=== PATIENT | male | born 1975 | race Caucasian/White ===

== ENCOUNTER 2019-01-30 19:59 | Emergency (ER) | payer SELFPAY ==
[2019-02-01 20:29] VITALS: BP 2/230
== END 2019-01-30 20:30 | disposition left against medical advice (07) ==
LOC: ER 20:01
DX: M54.9 Dorsalgia, unspecified (principal); R10.9 Unspecified abdominal pain

== ENCOUNTER 2019-02-01 20:15 | Emergency (ER) | payer OTHER ==
[~2019-02-01] VITALS: Ht 188 cm; Wt 104.3 kg
[2019-02-01] MEDS ORDERED: NS IV 1000 ML 1,000 ML IV ONE (20:35)
[2019-02-01] MEDS ORDERED: CITA20TA9 (20:36)
[2019-02-01 20:54] LABS: BILIRUBIN,URINE NEGATIVE (NEGATIVE); CLARITY,URINE SLIGHTLY CLOUDY; COLOR,URINE BROWN; GLUCOSE, URINE (UA) NEGATIVE (NEGATIVE); KETONES,URINE NEGATIVE (NEGATIVE); LEUKOCYTE ESTERASE ,URINE 1+ (NEGATIVE); NITRITE,URINE NEGATIVE (NEGATIVE); PH,URINE 6 (5-9); PROTEIN,URINE 2+ (NEGATIVE); UROBILINOGEN,URINE NORMAL (NORMAL)
[2019-02-01 20:55] LABS: BASOPHILS % (AUTO) 0 % (0-10); EOSINOPHILS # (AUTO) 0.1 10^3/uL (0.0-0.3); EOSINOPHILS % (AUTO) 1 % (0-10); HEMATOCRIT 44 % (40-54); HEMOGLOBIN 15.3 G/DL (13.3-17.7); LYMPHOCYTES # (AUTO) 1.9 X 10^3 (1.0-4.0); LYMPHOCYTES % (AUTO) 17 % (12-44); MEAN CORPUSCULAR HEMOGLOBIN 30 PG (25-34); MEAN CORPUSCULAR HGB CONC 35 G/DL (32-36); MEAN CORPUSCULAR VOLUME 87 FL (80-99); MEAN PLATELET VOLUME 11.9 FL (7.4-10.4); MONOCYTES # (AUTO) 0.8 X 10^3 (0.0-1.0); MONOCYTES % (AUTO) 7 % (0-12); NEUTROPHILS # (AUTO) 8.3 X 10^3 (1.8-7.8); NEUTROPHILS % (AUTO) 75 % (42-75); PLATELET COUNT 163 10^3/uL (130-400); RED CELL DISTRIBUTION WIDTH 13.3 % (10.0-14.5); WHITE BLOOD COUNT 11.1 10^3/uL (4.3-11.0)
--- NOTE | 2019-02-01 21:03 | Diagnostic Imaging Report ---
INDICATION: Right flank pain. FINDINGS: There are no calculi overlying the kidneys. Bowel gas pattern is normal. There are multiple calcifications in the pelvis which are rounded and most likely represent phleboliths, however, there is one 5 mm calculus, this does overlie the right inferior sacrum which could represent a distal right ureteral stone. No bony abnormalities. IMPRESSION: Question of a possible 5 mm calculus distal right ureteral stone versus phlebolith. Clinical followup recommended. Dictated by: Dictated on workstation # [id number]
[2019-02-01 21:06] LABS: BACTERIA,URINE NEGATIVE /HPF; RBC,URINE TNTC /HPF
[2019-02-01 21:12] LABS: ALANINE AMINOTRANSFERASE 18 U/L (0-55); ALBUMIN 4.6 GM/DL (3.2-4.5); ALKALINE PHOSPHATASE 65 U/L (40-136); AMYLASE 69 U/L (25-125); BILIRUBIN,TOTAL 0.6 MG/DL (0.1-1.0); BUN/CREATININE RATIO 14; CALCIUM 9.9 MG/DL (8.5-10.1); CARBON DIOXIDE 21 MMOL/L (21-32); CHLORIDE 104 MMOL/L (98-107); CREATININE SERUM 1.21 MG/DL (0.60-1.30); GFR ESTIMATED > 60; GLUCOSE 107 MG/DL (70-105); LIPASE 30 U/L (8-78); POTASSIUM 3.9 MMOL/L (3.6-5.0); SODIUM 138 MMOL/L (135-145); TOTAL PROTEIN 7.3 GM/DL (6.4-8.2)
--- NOTE | 2019-02-01 21:27 | Diagnostic Imaging Report ---
PROCEDURE: CT urinary tract, rule out kidney stone. TECHNIQUE: Multiple contiguous axial images were obtained through the abdomen and pelvis without the use of intravenous contrast. Auto Exposure Controls were utilized during the CT exam to meet ALARA standards for radiation dose reduction. INDICATION: Hematuria. FINDINGS: The lung bases are clear. There is mild hydronephrosis of the right kidney. The right ureter is dilated. There is a stone in the distal right ureter at the bladder measuring 5 mm. Left kidney and ureter are normal. The bladder is nondistended. There are no bladder stones. The lung bases are clear. The liver appears normal. Gallbladder and bile ducts are normal. Pancreas and spleen are normal. Adrenal glands are normal. Bowel gas pattern is normal. The appendix is normal. Aorta shows mild atherosclerotic disease. There is no evidence of constipation. No free air or free fluid. No bony lesions. IMPRESSION: Hydronephrosis of the right kidney due to a 5 mm calculus in the distal right ureter. Dictated by: Dictated on workstation # [id number]
[2019-02-01] MEDS ORDERED: RX-ONDANSETRON 4 MG ODT (ZOFRAN) PPK #4 PO STA (21:44)
[2019-02-01] MEDS ORDERED: TRIM/SULFAMETH 160/800 (SEPTRA DS) TAB PO ONE (21:45)
[2019-02-01] MEDS ORDERED: RX-HYDROCODONE/APAP 5/325 MG #4 TAB PK PO PRN (21:45)
[2019-02-01] MEDS ORDERED: ONDA4TAB11 PO (21:50)
[2019-02-01] MEDS ORDERED: ACHD5005 PO (21:50)
[2019-02-01] MEDS ORDERED: SULF1TAB35 PO (21:50)
--- NOTE | 2019-02-01 21:50 | ED Back Pain ---
General Chief Complaint: Back Problems Stated Complaint: BACK PAIN,VOMITING Nursing Triage Note: intermittant right flank pain/nausea/hematuria Nursing Sepsis Screen: No Definite Risk Source of Information: Patient Exam Limitations: No Limitations History of Present Illness Date Seen by Provider: Feb 01, 2019 Time Seen by Provider: 20:36 Initial Comments 43-year-old male who presents to emergency room with complaints of intermittent right flank pain, nausea, hematuria for the past 2 days. He denies history of kidney stones. Denies fevers. Location: Other (right flank) Associated Symptoms: denies symptoms Allergies and Home Medications Allergies Coded Allergies: No Known Drug Allergies (Unverified , 02/01/19) Home Medications Hydrocodone Bit/Acetaminophen 1 Tab Tab, 1 EACH PO Q4-6HR PRN for PAIN-MODERATE Prescribed by: XI BROWN on 02/01/192149 Ondansetron 4 Mg Tab.rapdis, 4 MG PO Q4H PRN for NAUSEA/VOMITING-1ST LINE Prescribed by: XI BROWN on 02/01/192149 Sulfamethoxazole/Trimethoprim 1 Each Tablet, 1 EACH PO BID Prescribed by: XI BROWN on 02/01/192149 Patient Home Medication List Home Medication List Reviewed: Yes Review of Systems Constitutional: see HPI; No chills, No fever Gastrointestinal: see HPI, abdominal pain (right flank), nausea Genitourinary: see HPI, hematuria All Other Systems Reviewed Negative Unless Noted: Yes Past Sesrbwi-Otqhuu-[place] Hx Past Med/Social Hx: Reviewed Nursing Past Med/Soc Hx Patient Social History Alcohol Use: Occasionally Uses Alcohol Beverage of Choice: Beer Recreational Drug Use: No Smoking Status: Current Someday Smoker Type Used: Cigarettes 2nd Hand Smoke Exposure: Yes Recent Foreign Travel: No Contact w/Someone Who Travel: No Recent Infectious Disease Expo: No Recent Hopitalizations: No Immunizations Up To Date Tetanus Booster (TDap): Unknown Seasonal Allergies Seasonal Allergies: No Past Medical History Surgeries: No Respiratory: No Cardiac: No Neurological: No Genitourinary: Yes Kidney Stones Gastrointestinal: No Musculoskeletal: No Endocrine: No HEENT: No Cancer: No Psychosocial: Yes Anxiety Integumentary: No Blood Disorders: No Family Medical History Reviewed Nursing Family Hx Physical Exam Vital Signs Vital Signs - First Documented 02/01/19 20:29 Temp 99.0 Pulse 75 Resp 16 B/P (MAP) 145/114 (124) Pulse Ox 98 O2 Delivery Room Air Capillary Refill : Less Than 3 Seconds Height, Weight, BMI Height: 6'2.00" Weight: 230lbs. oz. 104.238864qm; BMI Method:Stated General Appearance: No Apparent Distress, WD/WN Cardiovascular: Regular Rate, Rhythm, No Edema, No Gallop, No JVD, No Murmur, Normal Peripheral Pulses Respiratory: Chest Non Tender, Lungs Clear, Normal Breath Sounds, No Accessory Muscle Use, No Respiratory Distress, Accessory Muscle Use Gastrointestinal: Normal Bowel Sounds, No Organomegaly, No Pulsatile Mass, Non Tender, Soft Extremity: Normal Capillary Refill Neurologic/Psychiatric: Alert, Oriented x3, Normal Mood/Affect Skin: Normal Color, Warm/Dry Progress/Results/Core Measures Results/Orders Lab Results Laboratory Tests Test 02/01/19 20:34 02/01/19 20:45 Range/Units Urine Color BROWN H Urine Clarity SLIGHTLY CLOUDY Urine pH 6 5-9 Urine Specific Reva 1.010 L 1.016-1.022 Urine Protein 2+ H NEGATIVE Urine Glucose (UA) NEGATIVE NEGATIVE Urine Ketones NEGATIVE NEGATIVE Urine Nitrite NEGATIVE NEGATIVE Urine Bilirubin NEGATIVE NEGATIVE Urine Urobilinogen NORMAL NORMAL MG/DL Urine Leukocyte Esterase 1+ H NEGATIVE Urine RBC (Auto) 5+ H NEGATIVE Urine RBC TNTC H /HPF Urine WBC NONE /HPF Urine Crystals NONE /LPF Urine Bacteria NEGATIVE /HPF Urine Casts NONE /LPF Urine Mucus NEGATIVE /LPF Urine Culture Indicated NO White Blood Count 11.1 H 4.3-11.0 10^3/uL Red Blood Count 5.10 4.35-5.85 10^6/uL Hemoglobin 15.3 13.3-17.7 G/DL Hematocrit 44 40-54 % Mean Corpuscular Volume 87 80-99 FL Mean Corpuscular Hemoglobin 30 25-34 PG Mean Corpuscular Hemoglobin Concent 35 32-36 G/DL Red Cell Distribution Width 13.3 10.0-14.5 % Platelet Count 163 130-400 10^3/uL Mean Platelet Volume 11.9 H 7.4-10.4 FL Neutrophils (%) (Auto) 75 42-75 % Lymphocytes (%) (Auto) 17 12-44 % Monocytes (%) (Auto) 7 0-12 % Eosinophils (%) (Auto) 1 0-10 % Basophils (%) (Auto) 0 0-10 % Neutrophils # (Auto) 8.3 H 1.8-7.8 X 10^3 Lymphocytes # (Auto) 1.9 1.0-4.0 X 10^3 Monocytes # (Auto) 0.8 0.0-1.0 X 10^3 Eosinophils # (Auto) 0.1 0.0-0.3 10^3/uL Basophils # (Auto) 0.0 0.0-0.1 10^3/uL Sodium Level 138 135-145 MMOL/L Potassium Level 3.9 3.6-5.0 MMOL/L Chloride Level 104 98-107 MMOL/L Carbon Dioxide Level 21 21-32 MMOL/L Anion Gap 13 5-14 MMOL/L Blood Urea Nitrogen 17 7-18 MG/DL Creatinine 1.21 0.60-1.30 MG/DL Estimat Glomerular Filtration Rate > 60 BUN/Creatinine Ratio 14 Glucose Level 107 H 70-105 MG/DL Calcium Level 9.9 8.5-10.1 MG/DL Corrected Calcium 8.5-10.1 MG/DL Total Bilirubin 0.6 0.1-1.0 MG/DL Aspartate Amino Transf (AST/SGOT) 18 5-34 U/L Alanine Aminotransferase (ALT/SGPT) 18 0-55 U/L Alkaline Phosphatase 65 40-136 U/L Total Protein 7.3 6.4-8.2 GM/DL Albumin 4.6 H 3.2-4.5 GM/DL Amylase Level 69 25-125 U/L Lipase 30 8-78 U/L My Orders Orders - XI BROWN Comprehensive Metabolic Panel (02/01/19 20:35) Lipase (02/01/19 20:35) Amylase (02/01/19 20:35) Ua Culture If Indicated (02/01/19 20:35) Ed Iv/Invasive Line Start (02/01/19 20:35) Cbc With Automated Diff (02/01/19 20:35) Ct Abd/Pelvis Wo(Kidney Stone) (02/01/19 20:35) Abdomen/Kub 1view (02/01/19 20:35) Ns Iv 1000 Ml (Sodium Chloride 0.9%) (02/01/19 20:35) Sulfamethoxazole/Trimet Ds Tab (Bactrim (02/01/19 21:45) Rx-Ondansetron Po (Rx-Zofran Po) (02/01/19 21:44) Rx-Hydrocodone/Apap 5-325 Mg (Rx-Vicodin (02/01/19 21:45) Medications Given in ED Current Medications Medications Dose Ordered Sig/Aaron Route Start Time Stop Time Status Last Admin Dose Admin Acetaminophen/ Hydrocodone Bitart 1 ea Q4H PRN PO 02/01/19 21:45 02/01/19 22:00 DC 02/01/19 21:57 1 EA Sodium Chloride 1,000 ml @ 0 mls/hr Q0M ONCE IV 02/01/19 20:35 02/01/19 20:37 DC 02/01/19 20:46 0 MLS/HR Trimethoprim/ Sulfamethoxazole 1 ea ONCE ONCE PO 02/01/19 21:45 02/01/19 21:47 DC 02/01/19 21:57 1 EA Vital Signs/I&O 02/01/19 02/01/19 20:29 21:58 Temp 99.0 98.9 Pulse 75 71 Resp 16 18 B/P (MAP) 145/114 (124) 141/84 (103) Pulse Ox 98 97 O2 Delivery Room Air Room Air Blood Pressure Mean: 124 Departure Impression Primary Impression: Ureteral stone with hydronephrosis Disposition: HOME, SELF-CARE Condition: Stable/Unchanged Departure-Patient Inst. Decision time for Depature: 21:48 Referrals: NO,LOCAL PHYSICIAN (PCP/Family) Primary Care Physician Patient Instructions: Kidney Stones (DC) Add. Discharge Instructions: Take medication as directed. Follow-up with a urologist within 1 week for a recheck. Strain all urine and if you should pass the stone take it with you to your urology appointment. Return back to the emergency room for worsening symptoms or concerns as needed. All discharge instructions reviewed with patient and/or family. Voiced understanding. Scripts Hydrocodone Bit/Acetaminophen (Hydrocodone/Acetaminophen 5/325mg Tablet) 1 Tab Tab 1 EACH PO Q4-6HR PRN for PAIN-MODERATE MDD 10 for 3 Days, #14 TAB Prov: XI BROWN 02/01/19 Sulfamethoxazole/Trimethoprim (Bactrim Ds Tablet) 1 Each Tablet 1 EACH PO BID for 7 Days, #14 TAB Prov: XI BROWN 02/01/19 Ondansetron (Ondansetron Odt) 4 Mg Tab.rapdis 4 MG PO Q4H PRN for NAUSEA/VOMITING-1ST LINE, #14 TAB Prov: XI BROWN 02/01/19 XI BROWN Feb 01, 2019 21:50
[2019-02-01 21:58] VITALS: BP 141/84
== END 2019-02-01 22:00 | disposition home or self-care (01) ==
LOC: EDUNIT# 20:15 → ER 20:16
DX: N13.2 Hydronephrosis with renal and ureteral calculous obstruction (principal); F41.9 Anxiety disorder, unspecified; F17.210 Nicotine dependence, cigarettes, uncomplicated; Z87.442 Personal history of urinary calculi
CPT/HCPCS: 36415; 74018; 74176; 80053; 81000; 82150; 83690; 85025; 96360